=== PATIENT | male | born 1950 | race Caucasian/White ===

== ENCOUNTER 2024-07-14 16:02 | Emergency (ER) | payer MEDICARE, OTHER ==
[2024-07-14] MEDS: Lidocaine 1% 5 ML VIAL INJECT ONE (16:23)
[2024-07-14] MEDS: Bacitracin/Neomycin/Polymyxin B Oint 0.9 GM U/D Packet TOP ONE (16:25)
[2024-07-14] MEDS: Diphtheria,Pertussis(Acell),Tetanus Vaccine 0.5 ML Syringe IM ONE (16:45)
== END 2024-07-14 17:00 | disposition home or self-care (01) ==
LOC: CC.ED 16:02
DX: S01.01XA Laceration without foreign body of scalp, initial encounter (principal); W20.8XXA Other cause of strike by thrown, projected or falling object, initial encounter
CPT/HCPCS: 12002; 90471; 90715; 99282-25; A9270-GY; J3490